=== PATIENT | female | born 1995 | race African-American/Black ===

== ENCOUNTER 2017-01-07 01:00 | Emergency (ER) | payer BC ==
[~2017-01-07] VITALS: Ht 162.6 cm; Wt 88.5 kg
[~2017-01-07 01:00] MED LIST: DEPO400I IM; FLUT1SPR9; GUAI100S6 PO; IBUP800T23 PO; LORA10TA PO; MMW SWISH-SWAL; MONT10TA2 PO; MUCI600T PO; OMEP20TA39 PO; Z.0.BCPILL PO
[2017-01-07 01:03] VITALS: BP 128/83; PULSE 124; RESP 18; TEMP 98.9; O2SAT 99
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
[2017-01-07] MEDS ORDERED: ACETAMINOPHEN/HYDROcodone 325 MG/5 MG TAB PO ONE (04:00)
[2017-01-07] MEDS ORDERED: IBUPROFEN 600 MG TAB PO ONE (04:00)
--- NOTE | 2017-01-07 04:11 | RADRPT ---
EXAM DATE/TIME: 01/07/2017 03:32 [place] COMPARISON: No previous studies available for comparison. INDICATIONS : Fell, trauma to right hip. MEDICAL HISTORY : None. SURGICAL HISTORY : None. ENCOUNTER: Initial ACUITY: 1 day PAIN SCORE: 9/10 LOCATION: Right hip FINDINGS: Examination of the right hip was performed with AP Pelvis. The primary and secondary trabecular jose kev of the femoral neck is intact. The hip joint is of normal width without significant sclerosis or bony hypertrophy. The acetabulum is grossly intact. CONCLUSION: No fracture. Frank Reyes MD on January 07, 2017 at 4:09 Board Certified Radiologist. This report was verified electronically.
[2017-01-07] MEDS ORDERED: IBUP-232 PO (04:13)
[2017-01-07 04:40] VITALS: BP 121/78
== END 2017-01-07 05:52 | disposition home or self-care (01) ==
LOC: NEPC 01:00
DX: S70.01XA Contusion of right hip, initial encounter (principal); K21.9 Gastro-esophageal reflux disease without esophagitis; W18.30XA Fall on same level, unspecified, initial encounter; Y93.02 Activity, running
CPT/HCPCS: 73502; 99283